=== PATIENT | female | born 1995 | race Asian ===

== ENCOUNTER 2024-01-31 10:07 | Emergency (ER) | payer SELFPAY ==
[2024-01-31 10:19] VITALS: BP 101/65; PULSE 62; RESP 18; TEMP 36.4; O2SAT 99
[2024-01-31] MEDS: FAMOTIDINE 20 MG/2 ML VIAL IV PUSH (10:41)
[2024-01-31] MEDS: SODIUM CHLORIDE 0.9% IV 1,000 ML 999 ML IV CONT (10:43)
--- NOTE | 2024-01-31 10:46 | ED.GENADULT ---
HPI - General Adult General Chief complaint: Abdominal Pain Stated complaint: ABD PAIN [id number] Time Seen by Provider: 01/31/24 10:22 History of Present Illness HPI narrative: Patient is a 28-year-old female who presents emergency department with chief complaint of epigastric pain. Patient reports for the last week she has had pain in the epigastric region reports worse with the eating and improved whenever she is not eating the patient states even triggered by drinking water the patient reports no vomiting denies diarrhea reports that she has had no intra-abdominal surgeries in the past patient reports her last menstrual period was within the last month Related Data Allergies Allergy/AdvReac Type Severity Reaction Status Date / Time No Known Allergies Allergy Verified 05/05/20 09:08 Review of Systems Review of Systems: A 10 system review of systems was completed on the patient and is negative except for what is stated in the HPI. Nursing and ancillary documentation was reviewed. [facility] Past Medical History Medical History Acid reflux Surgical History Surgical History H/O endoscopy Family History Family History Grandparent Diabetes mellitus Cerebrovascular accident Sibling Hypercholesterolemia Other Family history of malignant neoplasm of breast Family history of malignant neoplasm of ovary Social History Social History Smoking status: Never smoker Alcohol intake: never Exam Narrative: GENERAL: Well-appearing, well-nourished, and in no acute distress. HEAD: Normocephalic, atraumatic. EYES: PERRLA and EOMI. ENT: Nares clear, no rhinorrhea or epistaxis. Mucous membranes moist. NECK: Supple. CHEST: Clear to auscultation. No respiratory distress. HEART: Regular rate and rhythm. No murmur heard. Normal peripheral pulses. ABDOMEN: Soft, tenderness to palpation in the epigastric and right upper quadrant, nondistended, normal active bowel sounds. EXTREMITIES: Normal range of motion. No edema. SKIN: Warm, dry, no rash. NEURO: No focal deficits. Alert and oriented x3. PSYCH: Normal mood and affect. Course Vital Signs Vital signs: Vital Signs Temperature 36.4 C 01/31/24 10:19 Pulse Rate 62 01/31/24 10:19 Respiratory Rate 18 01/31/24 10:19 Blood Pressure 101/65 01/31/24 10:19 Pulse Oximetry 99 01/31/24 10:19 Temperature 36.4 C 01/31/24 10:19 Pulse Rate 62 01/31/24 10:19 Respiratory Rate 18 01/31/24 10:19 Blood Pressure 101/65 01/31/24 10:19 Pulse Oximetry 99 01/31/24 10:19 Medical Decision Making [facility] Narrative Medical decision making narrative: Differential diagnosis includes gastritis, colitis, pancreatitis, cholecystitis, choledocholithiasis, biliary colic, urinary tract infection, Laboratory studies were obtained showed normal CBC normal CMP urinalysis showed no evidence UTI liver enzymes are normal lipase was normal The patient is feeling better after receiving IV fluids Pepcid. Initial plan was to do ultrasound CT scan of the patient has decided she does not want disease right now as she is concerned for insurance not covering it was explained to the patient this would limit our ability to fully evaluate things patient expressed understanding this and patient has chosen to sign out against medical advice. Patient will be given a prescription for Protonix Vital Signs Vital Signs: Vital Signs Temperature 36.4 C 01/31/24 10:19 Pulse Rate 62 01/31/24 10:19 Respiratory Rate 18 01/31/24 10:19 Blood Pressure 101/65 01/31/24 10:19 Pulse Oximetry 99 01/31/24 10:19 Temperature 36.4 C 01/31/24 10:19 Pulse Rate 62 01/31/24 10:19 Respiratory Rate 18 01/31/24 10:19 Blood
[2024-01-31 10:50] LABS: Basophils Percent Auto 0.5 % (0.2-1.2); Eosinophils Absolute Auto 0.3 K/mm3 (0-0.3); Eosinophils Percent Auto 5.4 % (0-4.4); Hematocrit 38.9 % (37.0-47.0); Hemoglobin 12.7 g/dL (12.0-15.0); Immature Granulocyte Absolute 0.02 K/mm3 (0.00-0.031); Immature Granulocyte Percent A 0.3 % (0-0.5); Lymphocytes Absolute Auto 2.19 K/mm3 (0.9-3.2); Lymphocytes Percent Auto 34.8 % (18.3-44.2); Mean Corpuscular HGB Conc 32.6 g/dl (32-36); Mean Corpuscular Hemoglobin 26.8 pg (26-34); Mean Corpuscular Volume 82.2 fl (80-100); Mean Platelet Volume 9.8 fl (7.4-10.4); Monocytes Absolute Auto 0.5 K/mm3 (0.1-0.6); Monocytes Percent Auto 7.5 % (2.6-8.5); Neutrophils Absolute Auto 3.3 K/mm3 (1.3-6.7); Neutrophils Percent Auto 51.5 % (45.5-73.1); Platelet Count Result 213 k/mm3 (150-375); Red Blood Count 4.73 M/mm3 (4.2-5.4); Red Cell Distribution Width 12.8 % (11.5-14.5); White Blood Count 6.3 K/mm3 (4.5-10.0)
[2024-01-31 10:51] LABS: Appearance Urine Clear (Clear); Bilirubin Urine Negative (Negative); Blood Urine Negative (Negative); Color Urine Yellow (Yellow); Glucose Urine UA Negative (Negative); Ketones Urine Negative (Negative); Leukocyte Esterase Ur Negative LEU/UL (Negative); Nitrate Urine Negative (Negative); Protein Urine Negative (Negative); Specific Grav Ur 1.021 (1.001-1.035); Urobilinogen Urine 0.2 mg/dL (<2.0); pH Urine 5.5 (5.0-9.0)
[2024-01-31 11:01] LABS: Alanine Aminotransferase 12 U/L (6-35); Albumin Level 4.4 g/dL (3.5-5.1); Alkaline Phosphatase 73 U/L (38-126); Anion Gap 8 mmol/L (4-12); Aspartate Amino Transferase 23 U/L (14-36); Bilirubin,Total 0.6 mg/dL (0.2-1.3); Blood Urea Nitrogen 12 mg/dL (7-17); Calcium 8.9 mg/dL (8.4-10.2); Carbon Dioxide 24 mmol/L (22-30); Chloride 107 mmol/L (98-107); Estimated CRCL calculation 95 ml/min; Estimated Glomerular Filt Rate > 60; Glucose 87 mg/dL (65-110); Lipase 70 U/L (23-300); Potassium 3.8 mmol/L (3.4-5.0); Sodium 139 mmol/L (137-145)
[2024-01-31 11:06] LABS: Add Urine Microscopic? NO
== END 2024-01-31 11:49 | disposition left against medical advice (07) ==
PROVIDERS: Emergency Provider Emergency Medicine
DX: R10.13 Epigastric pain (principal)
CPT/HCPCS: 36415; 80053; 81003; 81025; 83690; 85025; 96361; 96374; 99284; J7030